=== PATIENT | female | born 1995 | race Caucasian/White ===

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

== ENCOUNTER 2017-06-13 16:26 | Emergency (ER) | payer BC ==
--- NOTE | 2017-06-13 16:34 | UC ---
[facility] HPI - HPI Summary HPI Summary: Pt presents with left lower tooth pain for the last 2 days. She thinks she has a cavity. Pain is worse when eating cold substances. Has been taking tylenol with good relief, but when it wears off it is a 10/10 pain. Denies fever, chills , headache, dizziness, fracture. - History of Current Complaint Stated Complaint: TOOTH PAIN Time Seen by Provider: 06/13/17 16:34 Hx Obtained From: Patient Hx Last Menstrual Period: 1 MONTH AGO Onset/Duration: Sudden Onset Pain Intensity: 8 Pain Scale Used: 0-10 Numeric Aggravating Factor(s): Cold - Allergies/Home Medications Allergies/Adverse Reactions: Allergies Allergy/AdvReac Type Severity Reaction Status Date / Time oseltamivir [From Tamiflu] Allergy Difficulty Verified 06/13/17 16:43 Breathing Home Medications: Home Medications Acetaminophen TAB* [Tylenol TAB*] 650 mg PO Q6HR 06/13/17 [History Confirmed ] PMH/Surg Hx/FS Hx/Imm Hx - Additional Past Medical History Additional PMH: None Previously Healthy: Yes Other History Of: Negative For: HIV, Hepatitis B, Hepatitis C, Anticoagulant Therapy - Surgical History Surgical History: Yes Surgery Procedure, Year, and Place: WISDOM TEETH - Family History Known Family History: Positive: Unknown - She is adopted. Negative: Cardiac Disease, Hypertension, Diabetes - Social History Occupation: Student Lives: With Family Alcohol Use: None Substance Use Type: None Smoking Status (MU): Never Smoked Tobacco - Immunization History Vaccination Up to Date: Yes Review of Systems Constitutional: Negative Skin: Negative Eyes: Negative ENT: Dental Pain Respiratory: Negative Cardiovascular: Negative Gastrointestinal: Negative Neurovascular: Negative Musculoskeletal: Negative Neurological: Negative Psychological: Negative All Other Systems Reviewed And Are Negative: Yes Physical Exam Triage Information Reviewed: Yes Appearance: Well-Appearing, No Pain Distress, Well-Nourished Vital Signs Reviewed: Yes Eyes: Positive: Conjunctiva Clear. Negative: Conjunctiva Inflamed ENT: Positive: Hearing grossly normal, Pharynx normal, Dental tenderness - Tooth 31, Uvula midline. Negative: Pharyngeal erythema Dental: Positive: Percussion Tenderness @ - Tooth 31. Negative: Gross Decay/ Caries @, Dental Fracture @, Abscess @, Cellulitis @, Cervical Lymphadenopathy, Bleeding Neck: Positive: Supple, Nontender, No Lymphadenopathy Respiratory: Positive: Lungs clear, Normal breath sounds, No respiratory distress, No accessory muscle use Cardiovascular: Positive: RRR, No Murmur, Pulses Normal Neurological: Positive: Alert Psychological: Positive: Age Appropriate Behavior Skin: Negative: rashes Dental Complaint Course/Dx - Course Course Of Treatment: Tooth 31 pain - no obvious sign of caries or abscess. Rx for lidocaine swish and spit - f/u with dentist this week. - Differential Dx/Diagnosis Provider Diagnoses: Tooth 31 pain Discharge - Sign-Out/Discharge Documenting (check all that apply): Discharge - Discharge Plan Condition: Stable Disposition: HOME Prescriptions: Lidocaine 2% VISCOUS* [Xylocaine 2% Viscous*] 15 ml SWISH SPIT QID PRN #180 ml PRN Reason: Pain Patient Education Materials: Toothache (ED) Referrals: Gene Maria STOPPER MAKER [Primary Care Provider] - Additional Instructions: If you develop a fever, shortness of breath, chest pain, new or worsening symptoms - please call your PCP or go to the ED. - Billing Disposition and Condition Condition: STABLE Disposition: HOME
[2017-06-13 16:43] VITALS: BP 113/70
== END 2017-06-13 17:04 | disposition home or self-care (01) ==
LOC: UCEAST 16:26
DX: K08.89 Other specified disorders of teeth and supporting structures (principal); Z88.8 Allergy status to other drugs, medicaments and biological substances
CPT/HCPCS: 99212; G0463

== ENCOUNTER 2017-09-06 19:27 | Emergency (ER) | payer BC ==
[2017-09-06 19:34] VITALS: BP 106/74
--- NOTE | 2017-09-06 19:46 | UC ---
Skin Complaint HPI - HPI Summary HPI Summary: This is scrilae Lulu Tucker documenting for attending Sebas Romero MD. This patient is a 22 year old F presenting to [facility] with a chief complaint of redness on right forearm due to a possible insect bite that occurred [employer]ANCE [employer]. The patient rates the pain 0/10 in severity. Symptoms aggravated by nothing. Symptoms alleviated by nothing. She denies going into the [place] recently and tick removal. - History of Current Complaint Chief Complaint: UCSkin Stated Complaint: BUG BITE ON R ARM Hx Obtained From: Patient Hx Last Menstrual Period: one week ago ?: No Onset/Duration: Sudden Onset, Lasting Days, Still Present Skin Exposure Onset/Duration: Days Ago Timing: Constant Onset Severity: Mild Current Severity: Mild Pain Intensity: 0 Pain Scale Used: 0-10 Numeric Location: Other - R forearm Character: Redness Aggravating Factor(s): Nothing Alleviating Factor(s): Nothing Related History: Insect Bite/Sting - Allergy/Home Medications Allergies/Adverse Reactions: Allergies Allergy/AdvReac Type Severity Reaction Status Date / Time oseltamivir [From Tamiflu] Allergy Difficulty Verified 09/06/17 19:34 Breathing Review of Systems Constitutional: Other - Negative fever Skin: Rash All Other Systems Reviewed And Are Negative: Yes PMH/Surg Hx/FS Hx/Imm Hx Previously Healthy: No Respiratory History: Asthma Psychological History: Depression Other History Of: Negative For: HIV, Hepatitis B, Hepatitis C, Anticoagulant Therapy - Surgical History Surgical History: Yes Surgery Procedure, Year, and Place: WISDOM TEETH - Family History Known Family History: Positive: Unknown - She is adopted. - Social History Occupation: Student Lives: With Family Alcohol Use: None Substance Use Type: None Smoking Status (MU): Never Smoked Tobacco - Immunization History Vaccination Up to Date: Yes Physical Exam - Summary Physical Exam Summary: VITAL SIGNS: Reviewed. GENERAL: Patient is a well-developed and nourished female who is lying comfortable in the stretcher. Patient is not in any acute respiratory distress. HEAD AND FACE: Normocephalic EYES: PERRLA, EOMI x 2. EARS: Hearing grossly intact. MOUTH: Oropharynx within normal limits. NECK: Supple, trachea is midline, no adenopathy, no JVD, no carotid bruit. CHEST: Symmetric, no tenderness at palpation LUNGS: Clear to auscultation bilaterally. No wheezing or crackles. CVS: Regular rate and rhythm, S1 and S2 present, no murmurs or gallops appreciated. ABDOMEN: Soft, non-tender. Bowel sounds are normal. No abdominal abnormal pulsations. EXTREMITIES: Full ROM in all major joints, no edema, no cyanosis or clubbing. NEURO: Alert and oriented x 3. No acute neurological deficits. Speech is normal and follows commands. SKIN: Dry and warm. swelling and erythema 3x3 cm on R forearm Triage Information Reviewed: Yes Vital Signs: Initial Vital Signs Temp 98.3 F 09/06/17 19:32 Pulse 94 09/06/17 19:32 Resp 18 09/06/17 19:32 BP 106/74 09/06/17 19:32 Pulse Ox 100 09/06/17 19:32 Vital Signs Reviewed: Yes Course/Dx - Course Course Of Treatment: Patient is a 22-year-old female who presents to the urgent care with chief complaint of having a rash in the right forearm. The patient reports that she thinks she had a insect bite yesterday he developed is erythema and swelling and tenderness. He symptoms that the patient has a cellulitis. Patient denies any history of walking in the [place] or tick removal. Therefore the patient was given a prescription for Keflex and discharged home with follow-up with PCP. The patient is hemodynamically stable alert and oriented 3. - Diagnoses Provider Diagnoses: Cellulitis Discharge - Sign-Out/Discharge Documenting (check all that apply): Patient Departure - Discharge Plan Condition: Stable Disposition: HOME Prescriptions: Cephalexin CAP* [Keflex CAP*] 500 mg PO TID #30 cap Patient Education Materials: Cellulitis (ED) Referrals: [facility] REFERRAL [Outside] No Primary Care Phys,NOPCP [Primary Care Provider] - Additional Instructions: Take medications as instructed and adhere to plan Take Acetaminophen or ibuprofen for pain or fever Increase your fluid intake Return to the or go to the emergency department if symptoms worsen Follow-up with primary care physician in next 2-3 days - Billing Disposition and Condition Condition: STABLE Disposition: Home
== END 2017-09-06 19:49 | disposition home or self-care (01) ==
LOC: UCEAST 19:27
DX: L03.113 Cellulitis of right upper limb (principal); J45.909 Unspecified asthma, uncomplicated; Z88.8 Allergy status to other drugs, medicaments and biological substances
CPT/HCPCS: 99212; G0463

== ENCOUNTER 2017-10-19 21:47 | Emergency (ER) | payer BC ==
[2017-10-19 21:56] VITALS: BP 130/92
--- OUTSIDE RECORDS SUMMARY | 2017-10-19 21:58 | XMS REPORT ---
:1995 External Reference #:[id number] Author Organization [facility] Address [address] [place] [address] Phone [phone] Care Team Providers Name Role Phone Bright Lux MD Care Team Information Band Manager Unavailable Bright Lux MD Primary Care Physician Unavailable Payers Type Date Identification Numbers Payment Provider Subscriber Commercial Policy Number: [id number] BC/BS Of [place] Dannielle IsbellOctavio Bunny PayID: [id number] [address] [address] [place] [address] Problems Description No Information Family History Date Family Member(s) Problem(s) Comments Father 60 Father No Current Problems Mother 57 Mother No Current Problems Social History Type Date Description Comments Dom Violence Screen screening has been done Allergies, Adverse Reactions, Alerts Date Description Reaction Status Severity Comments 07/07/2017 NKDA active Medications Medication Date Status Form Strength Qnty SIG Indications Ordering Provider Sertraline HCL Active Tablets 25mg 30tabs 1 by F43.22 Franca 018 mouth Shanelle, every day [employer] Lorazepam Active Tablets 0.5mg 30tabs take 02/23 F43.22 Franca 018 - 1 pill Shanelle, by mouth [employer] HOLDER up to twice daily as needed for anxiety No Active Hx Unknown Medications 018 - 018 No Active Hx Unknown Medications 018 - 018 Minocycline Hx Capsules 100mg 90caps 1 po L70.0 Franca HCL 018 - daily Shanelle, KEY HOLDER 018 Acanya Hx Gel 1.2-2.5% 50gm apply L70.0 Franca 018 - once Shanelle, daily to KEY HOLDER 018 affect skin of face and neck/back /anterior chest as needed Medications Administered in Office Medication Date Status Form Strength Qnty SIG Indications Ordering Provider Brief Administered Injection Franca Emotional/Beh 018 Shanelle, KEY HOLDER av Assessment W/ Scoring Doc Per Standard Inst Immunizations CPT Code Status Date Vaccine Lot # [id number] Given 11/25/2016 Influenza vac quadrivalent preservative free 3yrs and up 28935 Given 11/07/2015 Influenza vac quadrivalent preservative free 3yrs and up 59949 Given 04/05/2015 Gardasil vacine typs 6,11,16,18 3 dose schedule 03729 Given 11/01/2014 Influenza vac quadrivalent preservative free 3yrs and up 60144 Given 11/01/2014 Gardasil vacine typs 6,11,16,18 3 dose schedule 63243 Given 08/30/2014 Meningococcal Conjugate Vaccine,Serogroups For Intramuscular Use 14748 Given 08/30/2014 Gardasil vacine typs 6,11,16,18 3 dose schedule 12473 Given 12/12/2013 Tdap Tetanus, W Pertussis 99799 Given 04/11/2013 Influenza vac quadrivalent preservative free 3yrs and up 86260 Given 02/08/2012 Influenza vac quadrivalent preservative free 3yrs and up 30114 Given 11/18/2010 Influenza vac quadrivalent preservative free 3yrs and up 72726 Given 11/13/2009 Meningococcal Conjugate Vaccine,Serogroups For Intramuscular Use 22482 Given 11/13/2009 Influenza vac quadrivalent preservative free 3yrs and up 45845 Given 09/18/2009 Tdap Tetanus, W Pertussis 58909 Given 10/24/2008 Influenza vac quadrivalent preservative free 3yrs and up 17313 Given 09/30/2007 Varicella (Chicken Pox) Immunization 28684 Given 09/30/2007 Hep A Ped 2-Dose Immunization 95438 Given 03/30/2007 Influenza vac quadrivalent preservative free 3yrs and up 19054 Given 01/12/2007 Influenza vac quadrivalent preservative free 3yrs and up 66529 Given 06/24/2006 Influenza vac quadrivalent preservative free 3yrs and up 98582 Given 05/31/2006 Influenza vac quadrivalent preservative free 3yrs and up 86693 Given 05/31/2006 Hep A Ped 2-Dose Immunization 18192 Given 02/29/2004 Influenza vac quadrivalent preservative free 3yrs and up 41042 Given 01/29/2004 Influenza vac quadrivalent preservative free 3yrs and up 03901 Given 05/19/2001 (IPV) Inactive Poliovirus Vaccine 09481 Given 05/19/2001 MMR Virus Immunization 38270 Given 05/19/2001 DTaP Immunization 82085 Given 01/07/1999 DTaP & Hib Immunization 85481 Given 06/25/1998 MMR Virus Immunization 60675 Given 06/25/1998 Varicella (Chicken Pox) Immunization 47101 Given 03/18/1998 Comvax Hep B & Hib Immunization 95339 Given 03/18/1998 (IPV) Inactive Poliovirus Vaccine 25409 Given 03/18/1998 DTaP Immunization 17695 Given 01/15/1998 Comvax Hep B & Hib Immunization 69758 Given 01/15/1998 (IPV) Inactive Poliovirus Vaccine 63917 Given 01/15/1998 DTaP Immunization 10053 Given 1997 Hepatitis B Immunization, -19 Years 03672 Given 1997 Hepatitis B Immunization, -19 Years Vital Signs Date Vital Result Comment 10/01/2017 BP Systolic 100 mmHg BP Diastolic 60 mmHg Heart Rate 68 /min Body Temperature 98.7 F Respiratory Rate 16 /min Height 59 inches 4'11" Weight 92.00 lb BMI (Body Mass Index) 18.6 kg/m2 09/16/2017 BP Systolic 108 mmHg BP Diastolic 62 mmHg Heart Rate 80 /min Body Temperature 98.6 F Height 59 inches 4'11" Weight 92.00 lb BMI (Body Mass Index) 18.6 kg/m2 07/07/2017 BP Systolic 90 mmHg BP Diastolic 60 mmHg Heart Rate 72 /min Body Temperature 98.8 F Respiratory Rate 16 /min Height 59 inches 4'11" Weight 96.00 lb BMI (Body Mass Index) 19.4 kg/m2 Results Description No Information Procedures Date CPT Code Description Status 07/07/2017 84770 Brief Emotional/Behav Assessment W/ Scoring Doc Per Completed Standard Inst Encounters Type Date Location Provider CPT E/M Dx Office Visit 09/16/2017 3:15p Main Office Lulu Billy, JUAN 38180 F43.22 F34.1 G47.00 Office Visit 07/07/2017 2:15p [facility] ANUM Bai 78085 R59.0 L70.0 F34.1 Z13.9 Plan of Care 10/01/2017 - ANUM BaiF43.22 Adjustment disorder with anxietyFollow up:6 [id number] Dysthymic [id number] Insomnia, unspecifiedAllComments:~B_~U_Medication Management~b_~u_ Patient Understands medications he 's taking? Yes No Are there Barriers to Adherence? Yes No Has the patient been asked about herbal supplements and therapies, and OTC meds? Yes No
[2017-10-19] MEDS ORDERED: Morphine VIAL* 10 MG/ML 1 ML VIAL IV ONE (22:04)
[2017-10-19] MEDS ORDERED: NS 0.9% 1000 ML* 1,000 ML BOLUS ONE (22:06)
--- NOTE | 2017-10-19 22:07 | UC ---
Abdominal Pain Female HPI - HPI Summary HPI Summary: The patient is a 22-year-old female with acute onset of epigastric pain that started about 3 ago hours while at work. She has had no nausea vomiting or diarrhea. She denies any UTI symptoms. The pain is worse with any type of movement. Her last period was normal and a bout 2 weeks ago. He has had no syncope or near syncope. She denies any black or tarry stools. She does denies any change in bowel habits. She has had no surgeries on her abdomen. Denies any fever or chills. - History of Current Complaint Chief Complaint: UCAbdominalPain Stated Complaint: ABD PAIN Time Seen by Provider: 10/19/17 21:50 Hx Obtained From: Patient Hx Last Menstrual Period: one week ago Onset/Duration: Sudden Onset, Lasting Minutes Timing: Constant Severity Initially: Severe Severity Currently: Severe Pain Intensity: 9 Pain Scale Used: 0-10 Numeric Location: Epigastric Radiates: No Character: Cramping Aggravating Factor(s): Movement Alleviating Factor(s): Nothing Associated Signs and Symptoms: Positive: Negative Allergies/Adverse Reactions: Allergies Allergy/AdvReac Type Severity Reaction Status Date / Time oseltamivir [From Tamiflu] Allergy Difficulty Verified 10/19/17 21:57 Breathing PMH/Surg Hx/FS Hx/Imm Hx Previously Healthy: Yes Other History Of: Negative For: HIV, Hepatitis B, Hepatitis C, Anticoagulant Therapy - Surgical History Surgical History: Yes Surgery Procedure, Year, and Place: WISDOM TEETH - Family History Known Family History: Positive: Unknown - She is adopted. - Social History Alcohol Use: None Substance Use Type: None Smoking Status (MU): Never Smoked Tobacco - Immunization History Vaccination Up to Date: Yes Review of Systems Constitutional: Negative Skin: Negative Eyes: Negative ENT: Negative Respiratory: Negative Cardiovascular: Negative Gastrointestinal: Abdominal Pain Genitourinary: Negative Motor: Negative Neurovascular: Negative Musculoskeletal: Negative Neurological: Negative Psychological: Negative Is Patient Immunocompromised?: No All Other Systems Reviewed And Are Negative: Yes Physical Exam Triage Information Reviewed: Yes Appearance: Pain Distress, Thin Vital Signs: Initial Vital Signs Temp 99.2 F 10/19/17 21:51 Pulse 96 10/19/17 21:51 Resp 21 10/19/17 21:51 BP 130/92 10/19/17 21:51 Pulse Ox 100 10/19/17 21:51 Vital Signs Reviewed: Yes Eyes: Positive: Conjunctiva Clear ENT: Positive: Hearing grossly normal. Negative: Nasal congestion, Nasal drainage, Trismus, Muffled voice, Hoarse voice Neck: Positive: Supple, Nontender Respiratory: Positive: Lungs clear, Normal breath sounds, No respiratory distress, No accessory muscle use Cardiovascular: Positive: RRR. Negative: Tachycardia Abdomen Description: Negative: Nontender - tender epigastrium Musculoskeletal: Positive: ROM Intact, No Edema Neurological: Positive: Alert Psychological Exam: Normal Skin Exam: Normal Abd Pain Female Course/Dx - Course Course Of Treatment: To ER via EMS. D/W Lory at [facility] ED - Differential Dx/Diagnosis Provider Diagnoses: acute epigastric pain of uncertain cause Discharge - Sign-Out/Discharge Documenting (check all that apply): Patient Departure All imaging exams completed and their final reports reviewed: No Studies - Discharge Plan Condition: Stable Disposition: TRANS HIGHER LVL OF CARE FAC Referrals: No Primary Care Phys,NOPCP [Primary Care Provider] - Additional Instructions: Go straight to the ER Don't eat or drink - Billing Disposition and Condition Condition: STABLE Disposition: Trans Higher Lvl of Care Fac
== END 2017-10-19 22:31 | disposition short-term general hospital (02) ==
LOC: UCEAST 21:47
DX: R10.13 Epigastric pain (principal); Z88.8 Allergy status to other drugs, medicaments and biological substances
CPT/HCPCS: 99213; G0463; J2270

== ENCOUNTER 2017-10-19 22:57 | Emergency (ER) | payer BC ==
--- NOTE | 2017-10-19 23:32 | ED ---
Abdominal Pain/Female - HPI Summary HPI Summary: This patient is a 22 year old F BIBA to [facility] coming from the [facility] with a chief complaint of mid-abdominal pain since 18:00 today. The patient rates the pain 10 /10 in severity around 18:00 today, but 1/10 in severity currently. Patient denies vomiting, diarrhea, and fever. She was given 6 mg of morphine in the ambulance on the way over. Patient is on antidepressants. Her last BM was yesterday. - History of Current Complaint Chief Complaint: EDAbdPain Stated Complaint: ABD PAIN Time Seen by Provider: 10/19/17 23:20 Hx Obtained From: Patient Hx Last Menstrual Period: one week ago Onset/Duration: Sudden Onset, Lasting Hours - Since 18:00 today, Resolved - After 6 mg morphine Timing: Constant Severity Initially: Severe Severity Currently: Mild Pain Intensity: 1 Pain Scale Used: 0-10 Numeric Location: Other - Mid-abdomen Associated Signs and Symptoms: Negative: Fever, Vomiting, Diarrhea Allergies/Adverse Reactions: Allergies Allergy/AdvReac Type Severity Reaction Status Date / Time oseltamivir [From Tamiflu] Allergy Difficulty Verified 10/19/17 21:57 Breathing Home Medications: Home Medications LORazepam TAB(*) [Ativan 0.5 MG TAB (*)] 1 tab PO DAILY PRN 10/19/17 [History Confirmed 10/19/17] Sertraline* [Zoloft*] 1 tab PO DAILY 10/19/17 [History Confirmed 10/19/17] PMH/Surg Hx/FS Hx/Imm Hx Endocrine/Hematology History: Denies: Hx Anticoagulant Therapy, Hx Diabetes, Hx Thyroid Disease Cardiovascular History: Denies: Hx Congestive Heart Failure, Hx Deep Vein Thrombosis, Hx Hypertension , Hx Myocardial Infarction, Hx Pacemaker/ICD Respiratory History: Reports: Hx Asthma - As a child. Denies: Hx Chronic Obstructive Pulmonary Disease (COPD), Hx Lung Cancer GI History: Denies: Hx Gall Bladder Disease, Hx Gastrointestinal Bleed, Hx Ulcer, Hx Urosepsis History: Denies: Hx Kidney Stones, Hx Renal Disease Neurological History: Denies: Hx Dementia, Hx Migraine, Hx Seizures, Hx Transient Ischemic Attacks (TIA) Psychiatric History: Reports: Hx Eating Disorder, Hx Depression Denies: Hx Anxiety, Hx Schizophrenia, Hx Bipolar Disorder, Hx of Violent Episodes Against Others - Surgical History Surgery Procedure, Year, and Place: WISDOM TEETH Infectious Disease History: No Infectious Disease History: Denies: Hx Clostridium Difficile, Hx Hepatitis, Hx Human Immunodeficiency Virus (HIV), Hx of Known/Suspected MRSA, Hx Tuberculosis, Hx Known/Suspected VRE , Hx Known/Suspected VRSA, History Other Infectious Disease, Traveled Outside the [place] in Last 30 Days - Family History Known Family History: Positive: Unknown - She is adopted. - Social History Occupation: Student Lives: With Family Alcohol Use: None Substance Use Type: Reports: None Smoking Status (MU): Never Smoked Tobacco Review of Systems Negative: Fever Positive: Abdominal Pain - Mid-abdominal pain. Negative: Vomiting, Diarrhea All Other Systems Reviewed And Are Negative: Yes Physical Exam - Summary Physical Exam Summary: VITAL SIGNS: Reviewed. GENERAL: Patient is a well-developed and nourished FEMALE who is lying comfortable in the stretcher. Patient is not in any acute respiratory distress. HEAD AND FACE: No signs of trauma. No ecchymosis, hematomas or skull depressions. No sinus tenderness. EYES: PERRLA, EOMI x 2, No injected conjunctiva, no nystagmus. EARS: Hearing grossly intact. Ear canals and tympanic membranes are within normal limits. MOUTH: Oropharynx within normal limits. NECK: Supple, trachea is midline, no adenopathy, no JVD, no carotid bruit, no c- spine tenderness, neck with full ROM. CHEST: Symmetric, no tenderness at palpation LUNGS: Clear to auscultation bilaterally. No wheezing or crackles. CVS: Regular rate and rhythm, S1 and S2 present, no murmurs or gallops appreciated. ABDOMEN: Signs of distention. Hyperactive bowel sounds. EXTREMITIES: FROM in all major joints, no edema, no cyanosis or clubbing. NEURO: Alert and oriented x 3. No acute neurological deficits. Speech is normal and follows commands. SKIN: Dry and warm Triage Information Reviewed: Yes Vital Signs On Initial Exam: Initial Vitals Temp Pulse Resp BP Pulse Ox 98.9 F 74 14 124/85 100 10/19/17 23:17 10/19/17 23:17 10/19/17 23:17 10/19/17 23:17 10/19/17 23:17 Vital Signs Reviewed: Yes Diagnostics - Vital Signs Vital Signs Temp Pulse Resp BP Pulse Ox 10/19/17 23:17 98.9 F 74 14 124/85 100 - Laboratory Result Diagrams: 10/19/17 23:43 10/19/17 23:43 Lab Statement: Any lab studies that have been ordered have been reviewed, and results considered in the medical decision making process. - Radiology Abdomen X-Ray Radiology Interpretation Completed By: ED Physician - Read 00:10 10/20/2017. Revealsexcessive stool and gas in the bowel. Consistent with constipation. Pending official report. Abdominal Pain Fem Course/Dx - Course Course Of Treatment: This patient is a 22 year old F BIBA to [facility] coming from the [facility] with a chief complaint of mid-abdominal pain since 18:00 today. Patient has normal blood work that includes CRP and WBC. Abdomen pain consistent w/ excessive stool and gas in the bowel, likely secondary to constipation. She will be given laxatives and sent home. Dx is constipation. - Diagnoses Provider Diagnoses: Constipation Discharge - Sign-Out/Discharge Documenting (check all that apply): Patient Departure - D/C - Discharge Plan Condition: Stable Disposition: HOME Patient Education Materials: Constipation (ED) Referrals: No Primary Care Phys,NOPCP [Primary Care Provider] - (Follow up with the [facility] if you do not have a primary care physician.) Additional Instructions: RETURN TO THE EMERGENCY DEPARTMENT FOR CHANGING OR WORSENING SYMPTOMS. FOLLOW UP WITH PCP IN 1-2 DAYS. - Attestation Statements Document Initiated by Scribe: Yes Documenting Scribe: Alirio King Provider For Whom Scribe is Documenting (Include Credential): Sandra Bose MD Scribe Attestation: Alirio Colindres, scribed for Sandra Bose MD on 10/20/17 at 0014.
[2017-10-19 23:50] LABS: ABS Basophils 0.1 10^3/ul (0-0.2); ABS Eosinophils 0.1 10^3/ul (0-0.6); ABS Lymphocytes 2.4 10^3/ul (1.0-4.8); ABS Monocytes 0.7 10^3/ul (0-0.8); ABS Nucleated RBC 0 10^3/ul; Eosinophil % 0.9 % (0-6); Hematocrit 36 % (35-47); Hemoglobin 12.2 g/dl (12.0-16.0); Lymphocyte % 29.3 % (25-47); Mean Corpuscular HGB Conc 34 g/dl (31-36); Mean Corpuscular Hemoglobin 30 pg (27-31); Mean Corpuscular Volume 88 fL (80-97); Nucleated Red Blood Cells % 0.1; Platelet Count 241 10^3/ul (150-450); Red Blood Count 4.11 10^6/ul (4.00-5.40); Red Cell Distribution Width 13 % (10.5-15); White Blood Count 8.2 10^3/ul (3.5-10.8)
[2017-10-20 00:06] LABS: EGFR Non-African American 114.2 (>60)
[2017-10-20] MEDS ORDERED: Magnesium CITRATE* 300 ML BTL PO ONE (00:11)
[2017-10-20] MEDS ORDERED: Bisacodyl SUPP* 10 MG SUPP PR ONE (00:12)
[2017-10-20 00:39] LABS: Urine Appearance Clear; Urine Blood Negative (Negative); Urine Color Yellow; Urine Ketones Trace (Negative); Urine Protein Negative (Negative); Urine Urobilinogen Negative (Negative)
[2017-10-20 00:43] VITALS: BP 107/77
--- NOTE | 2017-10-20 08:05 | RAD ---
INDICATION: Abdominal pain. COMPARISON: KUB dated June 24, 2007 TECHNIQUE: Supine and upright views of the abdomen were obtained. FINDINGS: There is no radiographically apparent pathologic distention of the bowel. Incidentally noted is a large amount of stool overlying the cecum and ascending colon while the more distal transverse and descending colon are air-filled. There is no evidence of free air. There are no large suspicious calcifications overlying either kidney. IMPRESSION: Incidentally noted is a large amount of stool overlying the cecum and ascending colon in this otherwise normal abdominal radiograph. Please correlate to clinical history of constipation. R0
== END 2017-10-20 00:42 | disposition home or self-care (01) ==
LOC: ED 22:57
DX: K59.00 Constipation, unspecified (principal); R10.9 Unspecified abdominal pain; Z79.899 Other long term (current) drug therapy
CPT/HCPCS: 36415; 74019; 80053; 81003; 82150; 83605; 83690; 83735; 84702; 85025; 86140; 99283; A9270-GY

== ENCOUNTER 2018-06-02 10:44 | Emergency (ER) | payer BC ==
[2018-06-02 11:05] VITALS: BP 102/70
[2018-06-02 12:16] LABS: Influenza A Molecular POSITIVE (Negative)
--- NOTE | 2018-06-02 12:57 | UC ---
FLU HPI - HPI Summary HPI Summary: 23 y/o female presents to the urgent care c/o headache sinus congestion and body aches with cough - History of Current Complaint Chief Complaint: UCGeneralIllness Stated Complaint: FLU LIKE SYMPTOMS Time Seen by Provider: 06/02/18 12:45 Hx Obtained From: Patient Hx Last Menstrual Period: 04/23/18 Onset/Duration: Gradual Onset, Lasting Weeks - 1 week, Still Present, Worse Since - yesterday Severity Currently: Mild Severity Initially: Moderate Pain Intensity: 7 Pain Scale Used: 0-10 Numeric Associated Signs & Symptoms: Positive: Fever - low grade subjective fever at home, Myalgia, Cough - dry, Nasal Congestion - clear, Headache - Risk Factors Influenza Risk Factors: Negative - Allergy/Home Medications Allergies/Adverse Reactions: Allergies Allergy/AdvReac Type Severity Reaction Status Date / Time oseltamivir [From Tamiflu] Allergy Difficulty Verified 06/02/18 11:05 Breathing PMH/Surg Hx/FS Hx/Imm Hx Previously Healthy: Yes Respiratory History: Asthma Other History Of: Negative For: HIV, Hepatitis B, Hepatitis C, Anticoagulant Therapy - Surgical History Surgical History: Yes Surgery Procedure, Year, and Place: WISDOM TEETH - Family History Known Family History: Positive: Unknown - She is adopted. - Social History Occupation: Employed Full-time Lives: With Family Alcohol Use: None Substance Use Type: None Smoking Status (MU): Never Smoked Tobacco - Immunization History Vaccination Up to Date: Yes Review of Systems All Other Systems Reviewed And Are Negative: Yes Constitutional: Positive: Chills, Fatigue, Other - body ahces Skin: Positive: Negative Eyes: Positive: Negative ENT: Positive: Sore Throat - mild, Nasal Discharge - clear, Sinus Congestion Respiratory: Positive: Cough - dry Cardiovascular: Positive: Negative Gastrointestinal: Positive: Negative Genitourinary: Positive: Negative Motor: Positive: Negative Neurovascular: Positive: Negative Musculoskeletal: Positive: Myalgia Neurological: Positive: Headache Psychological: Positive: Negative Is Patient Immunocompromised?: No Physical Exam - Summary Physical Exam Summary: VITAL SIGNS: Reviewed. GENERAL: Patient is a well developed and nourished female who is sitting comfortable in the examining table. Patient is not in any acute respiratory distress. HEAD AND FACE: No signs of trauma. No ecchymosis, hematomas or skull depressions. No sinus tenderness. EYES: PERRLA, EOMI x 2, No injected conjunctiva, no nystagmus. No photophobia. EARS: Hearing grossly intact. Ear canals and tympanic membranes are within normal limits. Nose: edematous and erythematous nasal mucosa w/ clear nasal discharge. MOUTH: Positive no erythema, no tonsillar enlargement. Uvula in midline. NECK: Supple, trachea is midline, Positive anterior cervical lymphadenopathy, no JVD, no carotid bruit, no c-spine tenderness, neck with full ROM. No meningeal signs, no Kernig's or brudzinskis signs. CHEST: Symmetric, no tenderness at palpation LUNGS: Clear to auscultation bilaterally. No wheezing or crackles. CVS: Regular rate and rhythm, S1 and S2 present, no murmurs or gallops appreciated. ABDOMEN: Soft, non-tender. No signs of distention. No rebound no guarding, and no masses palpated. Bowel sounds are normal. EXTREMITIES: FROM in all major joints, no edema, no cyanosis or clubbing. NEURO: Alert and oriented x 3. No acute neurological deficits. Speech is normal and follows commands. SKIN: Dry and warm Triage Information Reviewed: Yes Vital Signs: Initial Vital Signs Temp 99.4 F 06/02/18 11:02 Pulse 109 06/02/18 11:02 Resp 20 06/02/18 11:02 BP 102/70 06/02/18 11:02 Pulse Ox 100 06/02/18 11:02 Flu Course/Dx - Course Course Of Treatment: Pt with URI on examination. Influenza A&B ordered: result: Influenza A positive.Pt is allergiv to Tamiflu and her symptoms started >5 days ago and treatment w/ Tamiflu PO is not recommended. Pt Rx ibuprofen PO to alleviates symptoms. Advised on hand washing and wear a mask to avoid spreading. Pt advised to rest, increase fluid intake, eat well and avoid strenuous exercise. Pt advised If symptoms do not improve or worsen advised to return to the urgent care or f/u with her PCP in 2-3 days for further evaluation and treatment. Pt understood and agreed - Differential Dx/Diagnosis Differential Diagnosis/HQI/PQRI: Bronchitis, Influenza, Pneumonia, Upper Respiratory Infection Provider Diagnosis: Influenza A Discharge - Sign-Out/Discharge Documenting (check all that apply): Patient Departure - d/c home All imaging exams completed and their final reports reviewed: No Studies - Discharge Plan Condition: Stable Disposition: HOME Prescriptions: Ibuprofen TAB* [Motrin TAB* 600 MG] 600 mg PO Q6H PRN #30 tab PRN Reason: Pain Patient Education Materials: Influenza (ED) Forms: *Work Release Referrals: [facility] [Outside] - 2 Days Additional Instructions: 1- You ar allergic to Tamiflu and also your symptoms started >5 days ago, thus Tamiflu is not recommended. Encourage hand washing and wear a mask to avoid spreading. 2-Please Take Ibuprofen PO q6-8hrs prn as instructed after meals to alleviate fever, and sore throat. Increase fluid intake, eat well, rest and avoid strenuous exercise 3-If symptoms do not improve or worsen please return to the urgent care or f/u with your PCP in 2 days for further evaluation and treatment. - Billing Disposition and Condition Condition: STABLE Disposition: Home
== END 2018-06-02 13:20 | disposition home or self-care (01) ==
LOC: UCEAST 10:44
DX: J10.1 Influenza due to other identified influenza virus with other respiratory manifestations (principal); J45.909 Unspecified asthma, uncomplicated; Z88.8 Allergy status to other drugs, medicaments and biological substances
CPT/HCPCS: 99211; G0463